=== PATIENT | female | born 1990 | race African-American/Black ===

== ENCOUNTER 2020-12-14 15:12 | Emergency (ER) | payer BC ==
[~2020-12-14] VITALS: Ht 170.2 cm; Wt 90.0 kg
[2020-12-14 15:15] VITALS: BP 143/69
== END 2020-12-14 16:24 | disposition home or self-care (01) ==
LOC: ER 15:12
DX: U07.1 COVID-19 (principal)
CPT/HCPCS: 99283; C9803; U0003; U0005

== ENCOUNTER 2021-09-08 13:57 | Emergency (ER) | payer BC ==
[~2021-09-08] VITALS: Ht 170.2 cm; Wt 93.0 kg
[2021-09-08 16:00] LABS: CLARITY URINE CLEAR (CLEAR); COLOR URINE YELLOW (YELLOW); KETONES URINE NEGATIVE (NEGATIVE); LEUKOCYTE ESTERASE URINE NEGATIVE (NEGATIVE); NITRITE URINE NEGATIVE (NEGATIVE); OCCULT BLOOD URINE NEGATIVE (NEGATIVE); PH URINE 5.5 (4.5-8.0); PROTEIN URINE NEGATIVE (NEGATIVE); SPECIFIC GRAVITY URINE 1.007 (1.005-1.030); UROBILINOGEN URINE 0.2 E.U./dL (0.2-1.0)
[2021-09-08] MEDS ORDERED: HYDROCODONE/ACETAMINOPHEN 5/325MG TABLET PO ONE (16:00)
[2021-09-08 16:09] LABS: UCG SCREEN NEGATIVE
[2021-09-08 17:30] VITALS: BP 119/86
[2021-09-08] MEDS ORDERED: NAPR-1176 MT ×2 (19:17→19:48)
[2021-09-08] MEDS ORDERED: CYCL10TA7 MT ×2 (19:17→19:48)
== END 2021-09-08 19:50 | disposition home or self-care (01) ==
LOC: ER 13:57
DX: M54.50 Low back pain, unspecified (principal); G89.29 Other chronic pain; G43.909 Migraine, unspecified, not intractable, without status migrainosus; Z98.890 Other specified postprocedural states
CPT/HCPCS: 72100; 76830; 76856; 81003; 81025; 93005; 99285

== ENCOUNTER 2022-09-20 08:21 | Emergency (ER) | payer BC ==
[~2022-09-20] VITALS: Ht 170.2 cm; Wt 109.0 kg
[~2022-09-20 08:21] MED LIST: CYCL10TA21 MT; NAPR-1176 MT
[2022-09-20 08:29] VITALS: BP 131/59
[2022-09-20] MEDS ORDERED: TUSSL MT (10:56)
== END 2022-09-20 11:20 | disposition home or self-care (01) ==
LOC: ER 08:21
DX: G43.909 Migraine, unspecified, not intractable, without status migrainosus (principal); B34.9 Viral infection, unspecified; Z20.822 Contact with and (suspected) exposure to COVID-19
CPT/HCPCS: 71045; 87426; 93005; 99285; C9803

== ENCOUNTER 2023-06-22 11:45 | Emergency (ER) | payer BC ==
[~2023-06-22] VITALS: Ht 170.2 cm; Wt 95.0 kg
[~2023-06-22 11:45] MED LIST changes: +TUSSL MT
[2023-06-22 12:00] VITALS: BP 125/64; PULSE 84; TEMP 98.9; O2SAT 99
[2023-06-22 13:21] LABS: CLARITY URINE CLOUDY (CLEAR); COLOR URINE YELLOW (YELLOW); GLUCOSE URINE NEGATIVE (NEGATIVE); KETONES URINE NEGATIVE (NEGATIVE); LEUKOCYTE ESTERASE URINE TRACE (NEGATIVE); NITRITE URINE NEGATIVE (NEGATIVE); OCCULT BLOOD URINE NEGATIVE (NEGATIVE); PH URINE 5.5 (4.5-8.0); PROTEIN URINE TRACE (NEGATIVE); SPECIFIC GRAVITY URINE 1.028 (1.005-1.030); UROBILINOGEN URINE 0.2 E.U./dL (0.2-1.0)
[2023-06-22 13:29] LABS: BASOPHILS % 0.8 % (0.0-2.0); DIFFERENTIAL COMMENT 0; EOSINOPHILS % 0.8 % (0.0-5.0); HEMATOCRIT. 39.4 % (36.0-48.0); HEMOGLOBIN. 12.8 g/dL (12.0-16.0); LYMPHOCYTES % 41.5 % (20.0-50.0); MEAN CORPUSCULAR HEMOGLOBIN 23.6 pg (28.0-32.0); MEAN CORPUSCULAR HGB CONC 32.4 g/dL (31.0-37.0); MEAN CORPUSCULAR VOLUME 73.1 fL (81.0-99.0); MEAN PLATELET VOLUME 7.7 fl (7.4-10.4); MONOCYTES % 8.6 % (2.0-8.0); NEUTROPHILS % 48.3 % (40.0-76.0); PLATELET 320 x1000/uL (130-400); WHITE BLOOD COUNT 7.1 x1000/uL (4.5-11.0)
[2023-06-22 13:34] LABS: BACTERIA URINE FEW; RBC URINE 0-2 /hpf (0-2); SQUAMOUS EPITHELIAL CELL URINE FEW /lpf (RARE/1+); YEAST URINE NONE SEEN
[2023-06-22 13:57] LABS: ALANINE AMINOTRANSFERASE 15 IU/L (10-49); ALBUMIN 4.7 g/dL (3.2-4.8); ASPARTATE AMINOTRANSFERASE 17 IU/L (<34); BILIRUBIN TOTAL 0.4 mg/dL (0.1-1.0); CALCIUM 9.2 mg/dL (8.7-10.4); CARBON DIOXIDE 24 mEq/L (21-32); CHLORIDE 105 mEq/L (98-107); CREATININE 0.9 mg/dL (0.6-1.0); GLUCOSE 86 mg/dL (70-105); POTASSIUM 4.2 mEq/L (3.5-5.1); PROTEIN TOTAL 8.2 g/dL (6.0-8.3); SODIUM 136 mEq/L (136-145); TROPONIN I HIGH SENSITIVITY < 4 ng/L (3.0-34); UREA NITROGEN BLOOD 13 mg/dL (9-23)
[2023-06-22] MEDS ORDERED: IBUP-2029 MT (14:56)
[2023-06-22] MEDS: IBUPROFEN 600MG TABLET PO ONE (16:02)
[2023-06-22] MEDS ORDERED: NITR-87 MT (16:52)
[2023-06-22 16:59] VITALS: RESP 16
== END 2023-06-22 17:03 | disposition home or self-care (01) ==
LOC: ER 12:38
DX: N39.0 Urinary tract infection, site not specified (principal); R07.89 Other chest pain; Z98.890 Other specified postprocedural states; Z86.59 Personal history of other mental and behavioral disorders
CPT/HCPCS: 36415; 71045; 80053; 81003; 81025; 84484; 85025; 93005; 99285